=== PATIENT | female | born 1995 | race Caucasian/White ===

== ENCOUNTER 2021-09-05 04:01 | Observation (INO) ==
[2021-09-05] MEDS ORDERED: Ringers Solution, Lactated 1,000 ML IVC ONE (04:57)
[2021-09-05 08:07] LABS: Candida DNA Not Detected (Not Detect); Gardnerella DNA Not Detected (Not Detect); Trichomonas DNA Not Detected (Not Detect)
== END 2021-09-05 06:55 | disposition home or self-care (01) ==
LOC: 1NENULAB
PROVIDERS: ADMIT Student in an Organized Health Care Education/Training Program; ATTEND Student in an Organized Health Care Education/Training Program

== ENCOUNTER 2021-09-05 08:03 | Inpatient (IN) ==
[2021-09-05] MEDS ORDERED: Metoclopramide 10 MG/2 ML VIAL IVP PRN (09:04)
[2021-09-05] MEDS ORDERED: Famotidine 20 MG/2 ML VIAL IVP PRN (09:04)
[2021-09-05] MEDS ORDERED: Naloxone 0.4 MG/ML INJ IVP PRN ×2 (09:04→14:41)
[2021-09-05] MEDS ORDERED: Ondansetron 4 MG/2 ML VIAL IVP PRN ×2 (09:04→14:41)
[2021-09-05] MEDS ORDERED: Ringers Solution, Lactated 1,000 ML IVC SCH (09:15)
[2021-09-05 09:48] LABS: Basophils % 0.1 %; Eosinophils # 0.1 K/mcL (0.0-0.6); Eosinophils % 0.8 %; Hematocrit 35.7 % (35.3-44.9); Hemoglobin 12.1 g/dL (11.5-15.4); Immature Granulocytes % 0.4 % (0-4); Lymphocytes # 3.1 K/mcL (0.6-4.6); Lymphocytes % 25.4 %; Mean Corpuscular HGB Conc 33.9 g/dL (31.6-35.5); Mean Corpuscular Hemoglobin 30.6 pg (28.0-33.3); Mean Corpuscular Volume 90.2 fL (83.0-100.0); Mean Platelet Volume 10.9 fL (9.4-12.4); Monocytes # 0.8 K/mcL (0.0-1.3); Monocytes % 6.8 %; Neutrophils # 8.2 K/mcL (1.6-8.9); Platelet Count 244 K/mcL (140-400); Red Blood Count 3.96 M/mcL (3.82-4.97); Red Cell Distribution Width 12.2 % (11.5-14.5); Segmented Neutrophils % 66.5 %; White Blood Count 12.3 K/mcL (4.3-11.1)
[2021-09-05] MEDS: *HR* Nalbuphine 10 MG/ML AMPUL IV PRN ×2 (10:10→12:36)
[2021-09-05] MEDS ORDERED: EPHEDrine 50 MG/ML VIAL IVP PRN (14:41)
[2021-09-05] MEDS ORDERED: Ropivacaine/PF 0.2% 20 ML VIAL EP ONE (14:41)
[2021-09-05] MEDS ORDERED: *HR* FentaNYL (PF) 100 MCG/2 ML VIAL EP ONE (14:41)
[2021-09-05] MEDS ORDERED: Epidural Premix (fent/bupiv) 110 ML EP SCH (14:45)
[2021-09-05] MEDS ORDERED: Epidural Premix (fent/bupiv) 110 ML EP ONE (14:47)
[2021-09-05] MEDS ORDERED: Oxytocin 30 UNIT/503 ML BAG IVC ONE (16:12)
[2021-09-05] MEDS ORDERED: Oxytocin 30 UNIT/503 ML BAG IVC SCH (19:04)
[2021-09-05] MEDS ORDERED: Lanolin 7 G OINT...G. TP PRN (19:04)
[2021-09-05] MEDS ORDERED: Ondansetron ODT 4 MG TAB.RAPDIS SL PRN (19:04)
[2021-09-05] MEDS: Ibuprofen 600 MG TABLET PO SCH (20:53)
[2021-09-05] MEDS: Acetaminophen 325 MG TABLET PO SCH (20:53)
[2021-09-05] MEDS: Benzocaine/Menthol 56 GM AEROSOL SPRAY TP PRN (23:50)
[2021-09-06 07:08] VITALS: BP 116/73; PULSE 90; TEMP 98.5; O2SAT 98
[2021-09-06] MEDS ORDERED: Prenatal Vit/FA 1 EACH TABLET PO SCH (09:00)
[2021-09-06] MEDS: Acetaminophen 325 MG TABLET PO SCH ×2 (10:29→18:23)
[2021-09-06] MEDS: Ibuprofen 600 MG TABLET PO SCH ×2 (10:29→18:23)
[2021-09-06] MEDS: Benzocaine/Menthol 56 GM AEROSOL SPRAY TP PRN (18:22)
== END 2021-09-06 18:37 | disposition home or self-care (01) | DRG 807 ==
LOC: 1NENULAB → 1NENUOBS 19:51
PROVIDERS: ADMIT Obstetrics & Gynecology; ATTEND Obstetrics & Gynecology